=== PATIENT | male | born 1940 | race Caucasian/White ===

== ENCOUNTER 2016-04-29 11:28 | Day surgery (SDC) | payer MEDICARE ==
[2016-04-29] MEDS ORDERED: DIAZEPAM 5 MG TAB PO ONE (11:38)
[2016-04-29] MEDS ORDERED: diphenhydrAMINE 25 MG CAP PO ONE (11:38)
[2016-04-29] MEDS ORDERED: FAMOTIDINE 20 MG TAB PO ONE (11:38)
[2016-04-29] MEDS ORDERED: ASPIRIN EC 325 MG TAB PO ONE (11:38)
[2016-04-29] MEDS ORDERED: NS 1,000 ML IV ONE (11:38)
--- NOTE | 2016-04-29 11:50 | CPEKG ---
Heart Rate: 66 RR Interval: 909 P-R Interval: 152 QRSD Interval: 86 QT Interval: 444 QTC Interval: 466 P [place]: 38 QRS [place]: 0 T Wave [place]: 44 EKG Severity - NORMAL ECG - EKG Impression: SINUS RHYTHM Electronically Signed By: Patrick Kramer 29-Apr-2016 12:23:59
[2016-04-29 12:15] LABS: % IMMATURE GRANULYOCYTES 0.3 % (0.0-1.1); ABSOLUTE IMMATURE GRANULOCYTES 0.02 10^3/uL (0.00-0.10); ADD DIFF? NO; ADD MORPH? NO; ADD SCAN? NO; ATYPICAL LYMPHOCYTE FLAG 10 (0-99); FRAGMENT RBC FLAG 0 (0-99); LEFT SHIFT FLG 0 (0-99); LIPEMIA HEMOLYSIS FLAG 90 (0-99); MEAN CELL HEMOGLOBIN 31.5 pg (27.9-34.1); MEAN CELL HEMOGLOBIN CONCENTR. 35.9 g/dL (32.4-36.7); MEAN CELL VOLUME 87.6 fL (81.5-99.8); MEAN PLATELET VOLUME 9.4 fL (8.7-11.7); PLATELET CLUMPS FLAG 0 (0-99); PLATELET COUNT 160 10^3/uL (150-400); RED BLOOD CELL COUNT 4.45 10^6/uL (4.40-6.38); RED CELL DISTRIBUTION WIDTH 11.9 % (11.5-15.2)
[2016-04-29 12:30] LABS: INR 1.03 (0.83-1.16); PROTIME(PATIENT) 13.4 SEC (12.0-15.0)
[2016-04-29 12:31] LABS: ANION GAP 9 mEq/L (8-16); CALCIUM 9.6 mg/dL (8.5-10.4); CARBON DIOXIDE 25 mEq/l (22-31); CHLORIDE 106 mEq/L (97-110); CHOLESTEROL 102 mg/dL (140-220); CHOLESTEROL/HDL RATIO 2.68 RATIO (1.00-4.97); CREATININE 0.8 mg/dL (0.7-1.3); GLOMERULAR FILTRATION RATE > 60; GLUCOSE 96 mg/dL (70-100); HIGH DENSITY LIPOPROTEIN 38 mg/dL (40-65); LDL/HDL RATIO 1.18 RATIO (1.00-3.64); LOW DENSITY LIPOPROTEIN 45 mg/dL (80-100); MAGNESIUM 1.9 mg/dL (1.6-2.3); NON-HIGH DENSITY LIPOPROTEIN 64 mg/dL (90-129); POTASSIUM 4.2 mEq/L (3.5-5.2); SODIUM 140 mEq/L (134-144); TRIGLYCERIDE 99 mg/dL (40-150); VERY LOW DENSITY LIPOPROTEINS 19 mg/dL (8-25)
[2016-04-29] MEDS ORDERED: fentaNYL 100 MCG/2 ML INJ ONE (13:00)
[2016-04-29] MEDS ORDERED: LIDOCAINE 1% 30 ML SDV ONE (13:00)
[2016-04-29] MEDS ORDERED: MIDAZOLAM 2 MG/2 ML VIAL ONE (13:00)
[2016-04-29] MEDS ORDERED: HEPARIN 10,000 UNIT/10 ML MDV ONE (13:01)
[2016-04-29] MEDS ORDERED: VERAPAMIL 5 MG/2 ML VIAL ONE (13:01)
--- NOTE | 2016-04-29 14:26 | PDDXCAT ---
Diagnostic Cath Note - . Date: 04/29/16 Intervention: None Indication: CCS Class IV Angina, coronary artery disease s/p CABG (rSVG to the RCA). *Procedure 1. selective coronary angiography 2. left heart catheterization 3. left ventriculogram Access: Right radial artery. A plethysmography trace assisted Dieter's test was used to document document dual artery supply to the hand and index finger prior to access. *Materials Left Heart Cath size: 5F Left Heart Cath materials: JR4, JL3.5, pigtail *Findings-Left Heart Catheterization LM: The left main is ~6 mm in size and bifurcates into an LAD and circumflex system. There is no evidence of flow-limiting disease. LAD: The LAD is ~3 mm in size. Maximal luminal stenosis of 50% in the mid LAD. There is no evidence of flow-limiting disease with GEMA III flow throughout. LCX: The proximal left circumflex is ~3.5 mm in size without evidence of flow- limiting disease and GEMA III flow throughout. There is 10% in-stent restenosis with GEMA III flow. RCA: The RCA is dominant (gives rise to PDA and PLV branches) and is ~3.5 mm in size. There are multiple 20% lesions throughout without evidence of flow- limiting disease and GEMA III flow throughout. Left Ventriculogram: No wall motion abnormalities were identified. The visualized portion of the thoracic aorta revealed three sinuses of Valsalva. There was no evidence of aneurysm or dissection. Ejection Fraction: 65% LVEDP: 17 mmHg *Summary Complications: None Estimated blood loss: <50ml Closure method: TR Band Assessment: Non-flow limiting coronary artery disease with normal ejection fraction at 65% and no wall motion abnormalities on LVG. Previous stenting in the left circumflex was widely patent with 10% in-stent restenosis. There was diffuse disease throughout the coronary circulation consistent with atherosclerosis including a 50% mid LAD lesion that did not appear to limit flow. A cause for the patient's syncope/near-syncope and chest pain are not identified on the basis of this study. I have ordered a 14-day event monitor to rule out arrhythmia as a cause for the patient's episodes of syncope/near- syncope and palpitations.
== END 2016-04-29 16:53 | disposition home or self-care (01) ==
LOC: FCATH 11:28
PROVIDERS: ATTEND Internal Medicine Cardiovascular Disease
PROC: 4A023N7 Measurement of Cardiac Sampling and Pressure, Left Heart, Percutaneous Approach (ICD-10-PCS; principal; 2016-04-29)
PROC: B2151ZZ Fluoroscopy of Left Heart using Low Osmolar Contrast (ICD-10-PCS; principal; 2016-04-29)
PROC: B2111ZZ Fluoroscopy of Multiple Coronary Arteries using Low Osmolar Contrast (ICD-10-PCS; principal; 2016-04-29)
DX: R55 Syncope and collapse (principal); R07.9 Chest pain, unspecified; R00.2 Palpitations; I48.91 Unspecified atrial fibrillation; Z95.1 Presence of aortocoronary bypass graft; Z95.5 Presence of coronary angioplasty implant and graft; E78.5 Hyperlipidemia, unspecified; I10 Essential (primary) hypertension
CPT/HCPCS: J1644; J2250; J3010

== ENCOUNTER 2016-09-01 07:00 | Day surgery (SDC) | payer OTHER ==
[2016-09-01] MEDS ORDERED: MIDAZOLAM 2 MG/2 ML VIAL IVP ONE (07:01)
[2016-09-01] MEDS ORDERED: NS 1,000 ML IV ONE (07:01)
[2016-09-01] MEDS ORDERED: ISOPROTERENOL HCL 0.2 MG/ML 5ML AMP ONE (07:26)
[2016-09-01] MEDS ORDERED: HEPARIN 10,000 UNIT/10 ML MDV ONE (07:26)
[2016-09-01] MEDS ORDERED: LIDOCAINE 1% 300 MG/30 ML SDV ONE (07:26)
[2016-09-01] MEDS ORDERED: BUPIVACAINE 0.5% 30 ML SDV ONE (07:26)
--- NOTE | 2016-09-01 07:26 | CPEKG ---
Heart Rate: 57 RR Interval: 1053 P-R Interval: 156 QRSD Interval: 88 QT Interval: 444 QTC Interval: 433 P [place]: 19 QRS [place]: -11 T Wave [place]: 52 EKG Severity - NORMAL ECG - EKG Impression: SINUS RHYTHM Electronically Signed By: Agusto Huang 01-Sep-2016 11:37:37
[2016-09-01 08:00] LABS: % IMMATURE GRANULYOCYTES 0.3 % (0.0-1.1); ABSOLUTE IMMATURE GRANULOCYTES 0.01 10^3/uL (0.00-0.10); ADD DIFF? NO; ADD MORPH? NO; ADD SCAN? NO; ATYPICAL LYMPHOCYTE FLAG 0 (0-99); FRAGMENT RBC FLAG 0 (0-99); HEMATOCRIT 34.5 % (40.0-51.0); HEMOGLOBIN 12.4 g/dL (13.7-17.5); LEFT SHIFT FLG 0 (0-99); LIPEMIA HEMOLYSIS FLAG 90 (0-99); MEAN CELL HEMOGLOBIN 31.7 pg (27.9-34.1); MEAN CELL HEMOGLOBIN CONCENTR. 35.9 g/dL (32.4-36.7); MEAN CELL VOLUME 88.2 fL (81.5-99.8); MEAN PLATELET VOLUME 9.2 fL (8.7-11.7); PLATELET CLUMPS FLAG 0 (0-99); PLATELET COUNT 149 10^3/uL (150-400); RED BLOOD CELL COUNT 3.91 10^6/uL (4.40-6.38); RED CELL DISTRIBUTION WIDTH 11.9 % (11.5-15.2)
[2016-09-01 08:20] LABS: INR 1.02 (0.83-1.16); PROTIME(PATIENT) 13.3 SEC (12.0-15.0)
[2016-09-01 08:21] LABS: APTT 27.5 SEC (23.0-38.0)
[2016-09-01] MEDS ORDERED: fentaNYL 100 MCG/2 ML INJ ONE (08:40)
[2016-09-01] MEDS ORDERED: PROPOFOL/EMULSION 500 MG/50 ML BOTTLE IV ONE (08:41)
[2016-09-01 08:42] LABS: ANION GAP 9 mEq/L (8-16); CALCIUM 9.3 mg/dL (8.5-10.4); CARBON DIOXIDE 22 mEq/l (22-31); CHLORIDE 109 mEq/L (97-110); CREATININE 0.8 mg/dL (0.7-1.3); GLOMERULAR FILTRATION RATE > 60; GLUCOSE 111 mg/dL (70-100); MAGNESIUM 2.1 mg/dL (1.6-2.3); POTASSIUM 4.3 mEq/L (3.5-5.2); SODIUM 140 mEq/L (134-144)
[2016-09-01] MEDS ORDERED: ROCURONIUM 50 MG/5 ML VIAL ONE (08:43)
[2016-09-01] MEDS ORDERED: VASOPRESSIN 20 UNIT/ML VIAL ONE (09:27)
[2016-09-01] MEDS ORDERED: PROPOFOL 200 MG/20 ML VIAL ONE (09:51)
[2016-09-01] MEDS ORDERED: ONDANSETRON 4 MG/2 ML VIAL ONE (10:27)
[2016-09-01] MEDS ORDERED: SUGAMMADEX SODIUM 200 MG/2 ML VIAL IVP ONE (10:32)
--- NOTE | 2016-09-01 11:43 | EPPROC ---
Electrophysiology Procedure Note: DIAGNOSTIC ELECTROPHYSIOLOGIC STUDY Procedures performed: 1. Fluoroscopy 2. EP evaluation with RA/RV/LA pace/record, with arrhythmia induction 3. EP evaluation with RA/RV pace record, insert/reposition catheter, with arrhythmia induction 4. Programmed stimulation + pacing after IV drug 5. LINQ monitor implant INDICATION: Presyncope Nonsustained SVT seen on monitor PROCEDURE: Catheters & Anesthesia: The patient arrived in the Electrophysiology Laboratory in the fasting state. The right clavicular region, right groin, & left groin area were prepped & draped in the usual sterile manner. Dr. Blossom Evangelista administered anesthesia. Appropriate non-invasive blood pressure, pulse oximetry & end-tidal CO2 monitoring was established. All catheters were placed percutaneously using the modified Seldinger technique , and advanced into position under fluoroscopic guidance. One #7 Portuguese deflectable octapolar electrode catheter was advanced to the His-bundle position via the left femoral vein (2mm spacing). One #7 Portuguese deflectable quadrapolar catheter was advanced to the anteroseptal right ventricle via the right femoral vein. One #7 Portuguese deflectable catheter with 10 pairs of electrodes was placed via the right femoral vein into the coronary sinus. Programmed stimulation was performed from the right atrium, right ventricle and coronary sinus (left atrium). Parahisian pacing demonstrated constant H-A interval with changing V-A intervals and stimulus-A intervals during capture and loss of capture of proximal RBB proving retrograde conduction over AV node. No sustained reentrant tachycardia was induced during programmed stimulation at baseline or during graded doses of isoproterenol up to 4 mcg/min. Ventricular programmed stimulation was performed using standard protocol (2 pacing sites, 2 basic cycle lengths, up to 3 extrastimuli at twice pacing threshold). Ventricular burst pacing and long/short sequence pacing was also performed. The catheters were removed. LINQ monitor was placed in standard location using sterile technique, SN [id number]. Automatic triggers V rate <40 bpm >150 bpm, pause >3 seconds The patient was transferred to the cardiovascular holding area in stable condition. Vascular access sheaths were removed in the holding area. There were no apparent complications. Results: A. Spontaneous Intervals: SCL _755_ ms AH 65 ms HV _45_ ms B. Antegrade AV shanice function (decremental pacing) FPERP 320 ms WBB CL 310 ms C. Retrograde AV shanice function (decremental pacing) FPERP 430 ms WBB CL 420 ms CONCLUSIONS 1. Normal sinus and AV node function. 2. No evidence of accessory AV pathway presence. 3. No sustained arrhythmias induced. 4. No apparent complications. 5. LINQ monitor implanted Patient Problems: Problems Problem Status Onset Syncope Acute
[2016-09-01] MEDS ORDERED: ACETAMINOPHEN 325 MG TAB PO PRN (11:46)
[2016-09-01] MEDS ORDERED: ONDANSETRON 4 MG/2 ML VIAL IVP PRN (11:46)
[2016-09-01] MEDS ORDERED: HYDROCODONE/APAP 5/325 TAB PO PRN (13:25)
== END 2016-09-01 17:15 | disposition home or self-care (01) ==
LOC: FCATH 07:00
PROVIDERS: ATTEND Internal Medicine Cardiovascular Disease
DX: R55 Syncope and collapse (principal); I47.1 Supraventricular tachycardia; I10 Essential (primary) hypertension; I25.10 Atherosclerotic heart disease of native coronary artery without angina pectoris; K21.9 Gastro-esophageal reflux disease without esophagitis; C61 Malignant neoplasm of prostate; Z95.5 Presence of coronary angioplasty implant and graft
CPT/HCPCS: 33282; 93005; 93620; 93621; 93623; C1731; C1764; J1644; J2405; J2704; J3010

== ENCOUNTER 2016-10-26 14:55 | Observation (INO) | payer OTHER ==
[2016-10-26] MEDS ORDERED: ONDANSETRON 4 MG/2 ML VIAL IVP PRN (16:59)
[2016-10-26] MEDS ORDERED: ONDANSETRON DISINTEGRATING 4 MG TAB PO PRN (16:59)
[2016-10-26] MEDS ORDERED: ACETAMINOPHEN 325 MG TAB PO PRN (16:59)
[2016-10-26] MEDS ORDERED: CALCIUM CARBONATE 500 MG CHEWABLE TAB PO PRN (17:03)
[2016-10-26] MEDS ORDERED: NS 1,000 ML IV SCH (17:15)
--- NOTE | 2016-10-26 18:29 | GHP ---
[f rep st] HISTORY AND PHYSICAL DATE OF ADMISSION: 10/26/2016 CHIEF COMPLAINT: Presyncope. HISTORY OF PRESENT ILLNESS: A 75-year-old male with history of coronary artery disease with stent to left circumflex in March 2015, hypertension, prostate cancer, hyperlipidemia, who was transferred from a free-standing ER associated with [facility]. He presented today with a near-syncopal episode. He and his have been moving so he has been lifting heavy boxes. When lifting and standing up, he nearly passes out. He describes it as "on the edge of blacking out." He has actually had similar episodes like this starting 2 years ago when he almost passed out on a plane. He has had multiple episodes that are not associated with activity. He is often sitting at his computer. Today, he denied any associated chest pain, diaphoresis, nausea or numbness in his arm or jaw. He reports having "chest pressure" all the time. This is substernal. When I question, it was hard to pin down how often it is occurring. He says it comes and goes. It can be difficult to take a deep breath. He denies any swelling in his legs or abdomen. Reports PND. He does snore per his . He has orthopnea, cannot lie on his back but can lie on his side. He said that he feels like he stops breathing when sleeping. He is not drowsy during the day. Denies fevers, chills, or sweats. No nausea, vomiting, diarrhea. He is on androgen therapy, does have hot flashes and sweating all the time. Has had normal p.o. intake. He intermittently feels skipped beats or fluttering of the heart. He had an EP study done on August 31 that was normal and had a Linq recorder placed. He had a catheterization in April [address] Jama that showed [id number] coronary artery disease with a 10% in-stent restenosis. Normal EF with no wall motion abnormalities. There is a 50% LAD stenosis. REVIEW OF SYSTEMS: I completed a 10-point review of systems; negative except as noted in the patient's HPI. PAST MEDICAL HISTORY: Coronary artery disease with stent to left circumflex, hypertension, hyperlipidemia, prostate cancer, BPH. PAST SURGICAL HISTORY: Cholecystectomy, appendectomy, hernia. FAMILY HISTORY: Hypertension, coronary artery disease, strokes. 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 No alcohol or tobacco. Will have a cup of coffee a day. HOME MEDICATIONS: Trazodone 5 mg at bedtime, PPI 20 mg twice daily, Benicar 20 mg daily, Ativan p.r.n., herbal supplement, Plavix 75, atorvastatin 40 mg, aspirin 81 mg, Tylenol. He is not on a beta andres, unclear why. ALLERGIES: Codeine. PHYSICAL EXAMINATION: VITAL SIGNS: Temperature afebrile. Blood pressure 118/ 73, with standing 101/64. Heart rate 60s to 70s. 95% on room air. GENERAL: Well-appearing male, sitting in bed, no acute distress. HEENT: PERRLA. EOMI. Mildly dry mucous membranes. CARDIOVASCULAR: Regular. No murmurs, gallops or rubs. No elevated JVD or edema appreciated. LUNGS: Clear. No crackles or wheezing. ABDOMEN: Soft, nontender, nondistended. Positive bowel sounds. GENITOURINARY: No suprapubic tenderness. MUSCULOSKELETAL: 5/5 upper and lower extremity strength. NEUROLOGIC: 2 through 12 intact. PSYCHIATRIC: Alert and oriented x3. LABORATORY DATA: EKG from transfer facility: Normal sinus rhythm. ST depression in lateral leads, similar to prior. Troponin was negative from there. Repeat pending. ASSESSMENT AND PLAN: 1. Persistent presyncopal episodes: This has been a recurrent issue. He has had an extensive cardiac evaluation with a normal EP study in August 2016. Catheterization in 2017 showed non-flow limiting coronary artery disease. His symptoms do not appear to be related to acute coronary syndrome. Suspect it may be secondary to overmedication with terazosin and Benicar. He may be slightly dehydrated as well. I will give him IV fluids and hold terazosin and lisinopril. Would dose reduce this medication if needed at all. Will monitor on telemetry. Check echocardiogram, BNP and a TSH. I appreciate Cardiology's consultation in the morning. 2. Hyperlipidemia: Continue statin. 3. Coronary artery disease: Continue statin, Plavix and aspirin. It is unclear why he is not on a beta andres. Will hold PARMJIT inhibitor. 4. Hypertension: Orthostatic hypotension here. Hold antihypertensives. Give IV fluids gently. 5. Prostate cancer: Stable. 6. Diet: Regular. 7. Deep venous thrombosis prophylaxis: Lovenox. DISPOSITION: The patient warrants observation admission given presyncopal episode requiring telemetry, echocardiogram, and cardiology evaluation. /[id number]/MODL MTDD
[2016-10-26 18:42] LABS: ANION GAP 13 mEq/L (8-16); CALCIUM 10.3 mg/dL (8.5-10.4); CARBON DIOXIDE 23 mEq/l (22-31); CHLORIDE 105 mEq/L (97-110); CREATININE 0.9 mg/dL (0.7-1.3); GLOMERULAR FILTRATION RATE > 60; GLUCOSE 94 mg/dL (70-100); SODIUM 141 mEq/L (134-144)
[2016-10-26 18:49] LABS: TROPONIN I < 0.012 ng/mL (0.000-0.034)
[2016-10-26] MEDS ORDERED: Propylene Glycol [Systane Balance] EACHEYE PRN (18:57)
[2016-10-26] MEDS ORDERED: LORazepam 0.5 MG TAB PO PRN (18:57)
[2016-10-26] MEDS ORDERED: ATORVASTATIN CALCIUM 40 MG TAB PO SCH (21:00)
[2016-10-26] MEDS ORDERED: PANTOPRAZOLE SODIUM 40 MG TAB PO SCH (21:00)
[2016-10-26] MEDS ORDERED: ASPIRIN EC 81 MG TAB PO SCH (21:00)
[2016-10-27] MEDS ORDERED: Herbals/Supplements -Info Only PO SCH (09:00)
[2016-10-27] MEDS ORDERED: ENOXAPARIN 40 MG/0.4 ML SYR SC SCH (09:00)
[2016-10-27] MEDS ORDERED: CLOPIDOGREL BISULFATE 75 MG TAB PO SCH (09:00)
[2016-10-27] MEDS ORDERED: METOPROLOL TARTRATE 25 MG TAB PO SCH (10:45)
--- NOTE | 2016-10-27 11:17 | CPEKG ---
Heart Rate: 61 RR Interval: 984 P-R Interval: 156 QRSD Interval: 84 QT Interval: 436 QTC Interval: 440 P [place]: 39 QRS [place]: 27 T Wave [place]: 68 EKG Severity - NORMAL ECG - EKG Impression: SINUS RHYTHM Electronically Signed By: Pérez Jama 27-Oct-2016 15:31:21
--- NOTE | 2016-10-27 11:25 | ECHO ---
[id number] + + [address] : : [place] [address] : : [phone] + + Adult Echocardiographic Report + --------+ :Name: ROSENDA RAMESH JStudy Date: 10/27/2016 08:08 AM : : Hospital Admission Number: [id number] Locat ion: 210: :: 1940 Gender: Male Height: 70 in : :Age: 75 yrs Race: WH Weight: 188 l b : :Reason For Study: Presyncope : : BSA: 2.0 mete rs2 : + --------+ MMode/2D Measurements \T\ Calculations IVSd: 0.69 cm LVIDd: 4.4 cm FS: 44.2 % Ao root diam: LVPWd: 0.90 cm LVIDs: 2.4 cm EDV(Teich): 3.8 cm 85.7 ml LA dimension: ESV(Teich): 3.7 cm 20.8 ml EF(Teich): 75.7 % LVLd ap4: 8.7 cm SV(MOD-sp4): EDV(MOD-sp4): 69.0 ml 86.0 ml LVLs ap4: 6.2 cm ESV(MOD-sp4): 17.0 ml EF(MOD-sp4): 80.2 % Normal Measurement Values: + + :LVIDd (3.5-5.7cm) IVSd (0.6-1.1cm) LVPWd (0.6-1.1cm) Aortic Root (2.0-3.7cm)Left Atrium (1.5-4.0cm): :LV Vol(d) (76-115ml) LV Vol(s) (29-48ml) Ejec Fraction (50-65%)PV Bo (0.6- 1.2m/s) TV Bo (0.4-1.0m/s) : :MV E Bo (0.8-1.0m/s)MV A Bo (0.3-1.0m/s)LVOT Bo (0.7-1.2m/s) Asc Ao Bo ( 0.9-1.8m/s) : + + Doppler Measurements \T\ Calculations MV E max bo: 77.5 cm/sec Ao V2 max: 145.5 cm/sec MV A max bo: 85.4 cm/sec Ao max P.5 mmHg MV E/A: 0.91 Left Ventricle The left ventricle is normal in size. There is normal left ventricular wall thickness. Left ventricular systolic function is normal. Ejection Fraction = 70-75%. There is Doppler evidence for diastolic dysfunction. No regional wall motion abnormalities noted. Right Ventricle The right ventricle is normal in size and function. The right ventricular systolic function is normal. Atria The left atrial size is normal. Right atrial size is normal. The interatrial septum is intact with no evidence for an atrial septal defect. Mitral Valve The mitral valve is normal in structure and function. There is no evidence of mitral valve prolapse. There is no mitral valve stenosis. There is mild mitral regurgitation. Tricuspid Valve Normal tricuspid valve. There is trace tricuspid regurgitation. Aortic Valve The aortic valve is trileaflet. The aortic valve opens well. Mildly calcified NCC of the aortic valve. There is no aortic stenosis. Trace aortic regurgitation. Pulmonic Valve The pulmonic valve is normal in structure and function. Mild pulmonic valvular regurgitation. Great Vessels The aortic root is normal size. Pericardium/Pleural There is no pericardial effusion. Conclusion A complete two-dimensional transthoracic echocardiogram was performed (2D, M-mode, Doppler and color flow Doppler). Pt has a loop recorder implanted. Normal LV size and wall motion. Left ventricular systolic function is normal. Ejection Fraction = 70-75%. Grade I diastilic dysfunction. Erica aortic sclerosis. There is mild mitral regurgitation. There is trace tricuspid regurgitation. Trace aortic regurgitation. Mild pulmonic valvular regurgitation. Final Reading Physician: China Brantley signed on 10/27/2016 11:24 AM Ordering Physician: Alondra Luong Performed By: Denita Bach RDCS
[2016-10-27 12:50] VITALS: PULSE 61; RESP 20; TEMP 97.8; O2SAT 97
--- NOTE | 2016-10-27 14:02 | GCON ---
[f rep st] CONSULTATION CARDIOLOGY CONSULTATION DATE OF CONSULTATION: 10/27/2016 INDICATION FOR CARDIOLOGY CONSULTATION: Near-syncope, known history of CAD. HISTORY OF PRESENT ILLNESS: The patient is a 75-year-old male, who is known to our practice. He has previous past history that includes CAD, in which he has had a previous PCI with [place] implantation of the circumflex done at [facility] in March 2015, and most recent cardiac catheterization done on April 29, 2016 , by Dr. Jama, which showed mild disease, patent stent, with no flow-limiting disease noted. EF was estimated at 65%, EDP was 17. Hypertension, hyperlipidemia , and history of near-syncopal and presyncopal events when sitting down. He has also been seen by Dr. Huang, of our Electrophysiology Services, in which he had an EP procedure done September 01 of this year, in which no arrhythmias were identified, and he had a Linq implantation done. Patient reports that he had been in his normal state of health yesterday. He and his have recently decided to downsize, and they are moving. He reports that he had been working all day moving boxes, in which he noted around 2 p.m. some lightheadedness, especially when bending over and standing up quickly. He reports that he has had similar lightheaded symptoms before, but this is the first time with positional changing. Per his , he was mildly confused, lethargic after position changes, but patient denies any actual syncopal event. He was taken to [facility]'s free-standing emergency department. There he reports that he was feeling mildly better. He had initial electrocardiogram done there showing sinus rhythm, with nonspecific T-wave abnormalities, no malignant arrhythmias noted. Patient does report that while in the emergency department, he was told that he was having premature ventricular contractions. Reviewing his chart, he did have a CBC drawn, showing no signs of anemia. After a little while, patient was feeling better. He was transferred to [facility] for further evaluation. He has been admitted on the PCU. He has been on continuous cardiac monitoring, showing sinus rhythm with rare premature ventricular contraction, but no malignant arrhythmias. Upon arrival, he did have orthostatic blood pressures done, showing a 16 mm difference between supine and standing. He reports no further episodes of lightheadedness or near-syncope since hospital admission. He reports, prior to the this incident , he had been in his usual state health, reporting that he always feels an occasional irregular beat for the last 2-1/2 years, but has been noted to have small, less than 10-second, episodes of supraventricular tachycardia, but no other malignant arrhythmias have been noted via his loop recorder. He reports he always has a continuous mild chest pressure, midsternal, but reports this is constant, and has not changed since post catheterization. Denies any orthopnea, PND, edema. Denies any symptoms suggestive of TIA or CVA. Reports no recent fevers, chills, or night sweats. PAST MEDICAL HISTORY: Includes coronary artery disease, with previous stenting of the circumflex; hypertension; hyperlipidemia; prostate cancer; BPH. PAST SURGICAL HISTORY: Includes cholecystectomy, appendectomy, hernia, and stent implantation into the circumflex artery, March of 2015. FAMILY HISTORY: Patient reports significant family history of coronary artery disease, with sudden cardiac , reporting on his father's side, with history of father having an [place] in his late 60s and dying from it. He has also had multiple uncles and aunts on his father's side that have at early age of heart disease. The youngest was 45. He also reports 2 brothers that had MIs, that in her 70s from heart disease. 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 He is . He has 2 adult children who are alive and well, stating that except his son has history of hyperlipidemia. He denies any alcohol or tobacco use. He drinks a cup of coffee a day. ALLERGIES: Codeine. HOME MEDICATIONS: Include propylene glycol 1 drop each eye p.r.n., Hytrin 5 mg p.o. at bedtime, Protonix 20 mg p.o. twice daily, Benicar 40 mg p.o. daily, losartan 0.5 mg p.o. daily p.r.n., herbs and supplements, clopidogrel 75 mg p.o. daily, atorvastatin 40 mg p.o. h.s., aspirin 81 mg p.o. h.s., Tylenol 325 mg p.o. b.i.d. REVIEW OF SYSTEMS: A 10-point review of systems done on this patient all negative except as mentioned above. PHYSICAL EXAMINATION: GENERAL APPEARANCE: Medium built, well-groomed, elderly male. He is alert and orientated to person, place, time, and situation. Appears to be under no acute distress at this time. CURRENT VITAL SIGNS: Blood pressure 121/78. Heart rate of 71, sinus rhythm on the monitor. Respirations 18. Saturating 94% on room air. Temperature 36.4 degrees Celsius. HEENT: Head is normocephalic. Lips and tongue are pink and moist, with no signs of cyanosis. Conjunctivae pink. NECK: Trachea is midline, +2 carotid pulses bilateral. No auscultated bruits. No jugular vein distention. RESPIRATORY: Clear to auscultation. No rhonchi, rales, or wheezes. No accessory muscle use. No intercostal muscle retraction noted. CARDIAC: Regular rate, regular rhythm. S1, S2. No S3, S4, gallops, rubs, or murmurs noted. ABDOMEN: Soft, nontender. Bowel sounds x4 quadrants. No organomegaly. SKIN: [place], warm, dry. No cyanosis. No clubbing. No peripheral edema. VASCULAR: +2 radial pulses bilateral. +2 posterior tibial pulses bilateral. +2 carotid pulses bilateral. LABORATORY STUDIES: From [facility]'s ER, showed WBC of 4.62, hemoglobin of 13.0, hematocrit 35.6, platelet count of 187. Laboratories drawn when he arrived here showed that sodium was 141, potassium 4.0, chloride 105, CO2 23, BUN 23, creatinine 0.9, glucose 94, calcium 10.3. Magnesium 2.0. Troponin less than 0.012. ProBNP 196. TSH 0.956. It had been noted in [facility]'s record that troponin was negative, but no official lab result was found on that. STUDIES: Electrocardiogram done at [facility] emergency department shows sinus rhythm, normal axis, nonspecific T-wave abnormalities, but no acute ST or T-wave abnormalities suggesting of ischemia. In comparison to electrocardiogram done September 01, no significant change. ASSESSMENT AND PLAN: 1. Near syncope: Patient reporting near-syncopal event yesterday with heavy exertion, reports poor hydration at that time, reporting worsening with rapid raising his head for positional changes. Orthostatic blood pressures did note a 16 mm difference between supine and standing on admission to the hospital, no significant electrolyte abnormalities or anemia. The patient has been noted to be on both Hytrin and Benicar. Loop recorder interrogation done by myself, with the assistance of Kerry Mills, our EP nurse practitioner, showing patient was sinus tachycardic with rare premature ventricular contractions at the time of event, no other malignant arrhythmias noted at that time. Potentially, I do think that this is due to orthostatic hypotension with a combination of medication and dehydration, but we will continue to evaluate cardiac structure and function. He has had an echocardiogram done this morning, results are currently pending. I would like nursing staff to repeat orthostatic blood pressures. At this time, I do think it would be advisable for him to hold his Hytrin for the time being, and also his Benicar. Will re-evaluate his blood pressure. 2. Coronary artery disease: Patient with previous history of coronary artery disease, does report a continuous chest pain ever since his previous stenting, reports no change in symptoms. Has had a cardiac catheterization done in April of this year, which showed no flow-limiting disease, EKG shows no significant ST or T-wave abnormalities suggesting of ischemia, it is unchanged from previous one in August. He has had negative troponins x2. At this time, he has been continued on his anti-platelet therapy of aspirin and clopidogrel. He is on secondary risk prevention with atorvastatin, and I will have a repeated troponin level done again for a complete set at this time. I do also think, due to his recent near-syncopal event and reporting ongoing chest pressure, we will get a D-dimer to evaluate for possible pulmonary embolus with thrombotic event. Echocardiogram is pending. If he has no left ventricular wall motion abnormality , I do not feel that, with his atypical chest pain, any further testing is necessary at this time, especially with him having a recent coronary angiogram showing no flow-limiting disease. 3. Supraventricular tachycardia: When interrogating patient's loop recorder, it was noted last month that the patient had a small 9-second beat of supraventricular tachycardia, at a rate of 173 beats per minute. He was asymptomatic at the time, it was a device-triggered event. His TSH is within normal limits. He has been noted to have supraventricular tachycardia in the past. Consideration of starting him on low-dose beta-andres, metoprolol, after re-evaluation of his blood pressure. 4. Hypertension: Patient was noted to be orthostatic upon arrival here, his blood pressure has been stable. His Benicar and Hytrin have been held. With his orthostasis, would recommend discontinuing the Hytrin, watch his blood pressure closely. With his history of supraventricular tachycardia and coronary artery disease, I would consider starting him on low-dose beta-andres, metoprolol tartrate at 12.5 mg p.o. twice daily, with consideration of cutting back his Benicar to 10 mg. Will monitor his blood pressures, and decide later today if to reinstitute medications. 5. Hyperlipidemia: Patient has been resumed on home statin therapy. 6. Benign prostatic hypertrophy: The patient has been on Hytrin. Do think that this potentially may be associated with his ongoing lightheadedness. Currently on hold. Would prefer to discontinue at this time. Thank you for this consultation. We will be glad to follow along with you. /[id number]/MODL MTDD
[2016-10-27 14:21] VITALS: BP 134/57
--- NOTE | 2016-10-27 14:48 | PDDCSUM ---
Discharge Summary Discharge Summary: DISCHARGE SUMMARY FOLLOW-UP ITEMS: Recheck blood pressure and up titrate metoprolol according DATE OF ADMISSION: 10/26/16 DATE OF DISCHARGE: 10/27/16 DISCHARGE DIAGNOSES: 1. Acute near syncope 2. Chronic hypertension 3. Chronic BPH and prostate cancer 4. Supraventricular tachycardia CONSULTATIONS: Cardiology PROCEDURES / IMAGING: Echocardiogram with normal ejection fraction CHIEF COMPLAINT: Acute near syncope SUBJECTIVE: Patient feeling well at time of discharge PHYSICAL EXAM ON DISCHARGE: Systolic blood pressure is 130, heart rate 60 70, satting well on room air, positive orthostatics, alert awake oriented x3, no apparent distress, pain level 0/10 LABS ON DISCHARGE: D-dimer normal, troponin negative x2 HOSPITAL COURSE BY PROBLEM: 1. Acute near syncope. Most likely secondary to orthostasis, as well as possibly supraventricular tachycardia, noted on interrogation of patient's loop recorder, and potentially corresponding symptoms. Given the patient was orthostatic, we recommended discontinuing his Benicar and substituting it with low-dose metoprolol 12.5 twice daily. Patient is currently not taking terazosin so this was most likely not a contributing factor. 2. Chronic hypertension. As mentioned above, Benicar has been discontinued and metoprolol tartrate 12.5 mg twice daily has been initiated. I recommend the patient begin checking his blood pressure at home and keep a record of it to present to the cardiology clinic on the during his follow-up appointment. 3. Chronic BPH and prostate cancer. As mentioned above, the patient is no longer using his medication since his prostate cancer was treated. I advised the patient that if he begins experiencing urinary stream difficulties, then he reinitiate terazosin. 4. Supraventricular tachycardia. Noted on loop recorder interrogation, potentially contributing to his chief complaint, placed on beta-andres. DISCHARGE MEDICATIONS: Please see official discharge medication reconciliation sheet in chart , metoprolol tartrate 12.5 mg twice daily, discontinuation of Benicar. DISCHARGE INSTRUCTIONS: Please follow up with Nohemy Stephens on November 05 as scheduled.
[2016-10-27] MEDS ORDERED: TERAZOSIN HCL 5 MG CAP PO SCH (21:00)
== END 2016-10-27 15:41 | disposition home or self-care (01) ==
LOC: F2W 16:20
PROVIDERS: ADMIT Internal Medicine; ATTEND Internal Medicine
DX: R55 Syncope and collapse (principal); I47.1 Supraventricular tachycardia; I10 Essential (primary) hypertension; I25.10 Atherosclerotic heart disease of native coronary artery without angina pectoris; N40.0 Benign prostatic hyperplasia without lower urinary tract symptoms; E78.5 Hyperlipidemia, unspecified; Z95.5 Presence of coronary angioplasty implant and graft; Z85.46 Personal history of malignant neoplasm of prostate; Z82.49 Family history of ischemic heart disease and other diseases of the circulatory system
CPT/HCPCS: 93005; 93306; G0378; J1650